=== PATIENT | female | born 1955 ===

== ENCOUNTER 2021-10-10 21:36 | Emergency (ER) | payer SELFPAY ==
[2021-10-10] MEDS ORDERED: Dexamethasone 4 MG TAB ONE (22:24)
[2021-10-10] MEDS ORDERED: Azithromycin 500 MG VIAL ONE (22:24)
[2021-10-10] MEDS ORDERED: Cephalexin 250 MG CAP ONE ×2 (22:24→22:25)
== END 2021-10-10 22:37 | disposition home or self-care (01) ==
LOC: BURERS 21:36
DX: J18.9 Pneumonia, unspecified organism (principal)
CPT/HCPCS: 71046; 96374; J0456; J8540